=== PATIENT | male | born 1965 | race Caucasian/White ===

== ENCOUNTER 2024-08-10 03:34 | Emergency (ER) | payer SELFPAY ==
[~2024-08-10] VITALS: Ht 165.1 cm; Wt 80.0 kg
[2024-08-10] VITALS (7 sets, daily range): BP systolic 94–121; BP diastolic 60–74
[2024-08-10] MEDS ORDERED: BUSPAR5 MG PO (04:03)
[2024-08-10] MEDS ORDERED: BUPROPION HCL150 MG PO (04:03)
[2024-08-10] MEDS ORDERED: TRAZODONE100 MG PO (04:03)
[2024-08-10] MEDS ORDERED: THIAMINE HCL 100 MG/ML 2ML VIAL IV ONE (04:05)
[2024-08-10] MEDS ORDERED: SODIUM CHLORIDE 0.9% 1,000 ML IV ONE (04:05)
[2024-08-10 04:37] LABS: BASO% 1.1 % (0-3); EOS% 1.6 % (0-8); HEMATOCRIT 34.1 % (39.0-50.0); HEMOGLOBIN 11.4 g/dl (14.0-18.0); IMMATURE GRANULOCYTES 0.3 % (0.0-5.0); LYMPH% 18.1 % (15-41); MEAN CELL VOLUME 94.5 fL CALC (80.0-100.0); MEAN CORPUSCULAR HGB 31.6 pG CALC (26.0-32.0); MEAN CORPUSCULAR HGB CONC 33.4 g/dL CAL (32.0-36.0); MONO% 11.8 % (2-13); NEUT# 4.97 thou/uL (1.82-7.42); NEUT% 67.1 % (42-76); RED BLOOD COUNT 3.61 mill/uL (4.70-6.10)
[2024-08-10 04:41] LABS: URINE BILIRUBIN - DIPSTICK Negative (NEGATIVE); URINE BLOOD DIPSTICK Trace-intact (NEGATIVE); URINE GLUCOSE - DIPSTICK Negative (NEGATIVE); URINE KETONE Negative (NEGATIVE); URINE LEUK ESTERASE Negative (NEGATIVE); URINE NITRITE - DIPSTICK Negative (Negative); URINE PH 5.5 (4.5-8.0); URINE PROTEIN - DIPSTICK Trace mg/dL (NEG-TRACE); URINE SPECIFIC GRAVITY 1.025; URINE UROBILINOGEN - DIPSTICK 0.2 E.U./dL (0.2)
[2024-08-10 04:46] LABS: URINE COLOR Yellow
[2024-08-10 04:47] LABS: ALKALINE PHOSPHATASE 72 u/l (38-126); ANION GAP 12 (6-22 (CALC)); BILIRUBIN, TOTAL 0.4 mg/dL (0.2-1.3); BUN 22 mg/dL (9-20); BUN/CREATININE RATIO 16 (12-20 (CALC)); CARBON DIOXIDE 26 mmol/l (22-30); CHLORIDE 105 mmol/l (95-108); CREATININE 1.4 mg/dL (0.7-1.3); ESTIMATED GFR 58 ML/MIN (>=90 (CALC)); ETHYL ALCOHOL 0 mg/dl (0-30); MAGNESIUM 2.2 mg/dL (1.6-2.3); POTASSIUM 4.2 mmol/l (3.5-5.1); SGOT/AST 53 u/l (17-59); SODIUM 138 mmol/l (137-146); TOTAL PROTEIN 7.7 g/dL (6.3-8.2)
== END 2024-08-10 06:36 | disposition home or self-care (01) | DRG 923 ==
LOC: ED 03:34
PROVIDERS: Family Medicine
DX: Z04.1 Encounter for examination and observation following transport accident (principal); R41.0 Disorientation, unspecified; F19.10 Other psychoactive substance abuse, uncomplicated; I10 Essential (primary) hypertension; Z21 Asymptomatic human immunodeficiency virus [HIV] infection status
CPT/HCPCS: J3411